=== PATIENT | male | born 1970 | race Two or more races ===

== ENCOUNTER 2017-12-31 15:13 | Emergency (ER) | payer SELFPAY ==
[~2017-12-31] VITALS: Ht 167.6 cm; Wt 70.3 kg
[2017-12-31] MEDS ORDERED: LORAZEPAM INJ 2 MG/ML VIAL IVP ONE (15:30)
[2017-12-31 15:54] LABS: BASOPHILS % (AUTO) 0.3 % (0.0-2.0); CALCIUM, SERUM 9.2 mg/dL (8.5-10.1); EOSINOPHILS % (AUTO) 0.1 % (0.0-6.0); HEMATOCRIT 40 % (39-51); HEMOGLOBIN 13.5 g/dL (13.5-17.5); LYMPHOCYTES # (AUTO) 0.3 /CMM (0.8-4.8); LYMPHOCYTES % (AUTO) 6.5 % (20.0-44.0); MEAN CORPUSCULAR HGB CONC 34 g/dl (31.0-36.0); MEAN CORPUSCULAR VOLUME 100 fL (80-96); MONOCYTES # (AUTO) 0.6 /CMM (0.1-1.30); MONOCYTES % (AUTO) 11.6 % (2.0-12.0); NEUTROPHILS % (AUTO) 81.5 % (43.0-81.0); PLATELET COUNT (AUTO) 181 /CMM (150-450); POTASSIUM 3.4 mmol/L (3.5-5.1); RDW COEFFICIENT OF VARIATION 13.4 (11.5-15.0); RED BLOOD CELL COUNT(AUTO) 4.03 MIL/uL (4.5-6.0); WHITE BLOOD COUNT (AUTO) 4.9 K/uL (4.3-11.0)
--- NOTE | 2017-12-31 15:57 | NUR ---
PT TO CT VIA [facility].
[2017-12-31] MEDS ORDERED: LORAZEPAM INJ 2 MG/ML VIAL ONE (16:05)
--- NOTE | 2017-12-31 16:34 | NUR ---
UPR[facility] MOORE FRM ALF C/O WITNESSED SEIZURE. PT AAOX3, VSS. DENIES BAIRD, DIZZINESS, N/V, SOB, CP, @ THIS TIME. SHERYL RAILS PADDED FOR SAFETY. PT SEEN & EVAL'D BY DR. ROSSI. MEDICATED & WILL CONT TO MONITOR.
--- NOTE | 2017-12-31 17:17 | NUR ---
Patient discharged to home in stable condition. Written and verbal after care instructions given. Patient verbalizes understanding of instruction.
[2017-12-31 17:18] VITALS: BP 138/86
== END 2017-12-31 17:19 | disposition home or self-care (01) ==
LOC: ER 15:15
DX: R56.9 Unspecified convulsions (principal); F10.10 Alcohol abuse, uncomplicated; Y90.9 Presence of alcohol in blood, level not specified; Z60.2 Problems related to living alone
CPT/HCPCS: 36415; 70450; 80048; 85025; 96374; 99285; A4606; J2060; Z7610